=== PATIENT | male | born 1995 | race Caucasian/White ===

== ENCOUNTER 2016-11-15 11:41 | Emergency (ER) | payer MEDICAID ==
[~2016-11-15] VITALS: Ht 157.5 cm; Wt 62.1 kg
[~2016-11-15 11:41] MED LIST: CITA-36 PO; LAM100T PO
[2016-11-15 12:59] VITALS: BP 109/76
== END 2016-11-15 13:41 | disposition home or self-care (01) ==
LOC: ER 11:41
DX: S93.401A Sprain of unspecified ligament of right ankle, initial encounter (principal); F17.210 Nicotine dependence, cigarettes, uncomplicated; J45.909 Unspecified asthma, uncomplicated; F12.10 Cannabis abuse, uncomplicated; W01.0XXA Fall on same level from slipping, tripping and stumbling without subsequent striking against object, initial encounter; Y93.51 Activity, roller skating (inline) and skateboarding; Y99.8 Other external cause status; Y92.488 Other paved roadways as the place of occurrence of the external cause; Z88.0 Allergy status to penicillin; Z88.1 Allergy status to other antibiotic agents
CPT/HCPCS: 73610

== ENCOUNTER 2017-10-06 18:27 | Emergency (ER) | payer MEDICAID ==
[~2017-10-06] VITALS: Ht 157.5 cm; Wt 58.5 kg
[2017-10-06 18:43] VITALS: BP 116/67
== END 2017-10-06 20:20 | disposition home or self-care (01) ==
LOC: ER 18:27
DX: S93.402A Sprain of unspecified ligament of left ankle, initial encounter (principal); J45.909 Unspecified asthma, uncomplicated; F17.210 Nicotine dependence, cigarettes, uncomplicated; F12.10 Cannabis abuse, uncomplicated; Z88.0 Allergy status to penicillin; Z88.1 Allergy status to other antibiotic agents; Z88.8 Allergy status to other drugs, medicaments and biological substances; V00.131A Fall from skateboard, initial encounter; Y93.51 Activity, roller skating (inline) and skateboarding; Y99.8 Other external cause status; Y92.89 Other specified places as the place of occurrence of the external cause
CPT/HCPCS: 29515; 73610

== ENCOUNTER 2018-02-15 12:19 | Emergency (ER) | payer MEDICAID ==
[~2018-02-15] VITALS: Ht 157.5 cm; Wt 61.2 kg
[2018-02-15 12:24] VITALS: BP 125/71
== END 2018-02-15 13:59 | disposition home or self-care (01) ==
LOC: ER 12:19
DX: S83.91XA Sprain of unspecified site of right knee, initial encounter (principal); J45.909 Unspecified asthma, uncomplicated; F17.210 Nicotine dependence, cigarettes, uncomplicated; Z88.0 Allergy status to penicillin; Z88.1 Allergy status to other antibiotic agents; Z88.6 Allergy status to analgesic agent; X50.1XXA Overexertion from prolonged static or awkward postures, initial encounter; Y93.51 Activity, roller skating (inline) and skateboarding; Y92.89 Other specified places as the place of occurrence of the external cause; Y99.8 Other external cause status
CPT/HCPCS: 73562

== ENCOUNTER 2018-03-26 22:11 | Emergency (ER) | payer MEDICAID ==
[~2018-03-26] VITALS: Ht 157.5 cm; Wt 59.0 kg
[2018-03-26 23:13] VITALS: BP 122/87
== END 2018-03-27 03:06 | disposition left against medical advice (07) ==
LOC: ER 22:11
DX: R07.81 Pleurodynia (principal); Z53.21 Procedure and treatment not carried out due to patient leaving prior to being seen by health care provider; Y08.89XA Assault by other specified means, initial encounter; Y93.89 Activity, other specified; Y99.8 Other external cause status; Y92.89 Other specified places as the place of occurrence of the external cause
CPT/HCPCS: 70450; 71101

== ENCOUNTER 2019-02-27 12:12 | Emergency (ER) | payer MEDICAID ==
[~2019-02-27] VITALS: Ht 157.5 cm; Wt 56.7 kg
[2019-02-27 12:37] VITALS: BP 115/76
[2019-02-27 13:31] LABS: Urine Bacteria NONE SEEN /hpf (None Seen); Urine Blood Negative /uL (Negative); Urine Specific Gravity 1.016 (1.001-1.035); Urine WBC 38 /hpf (0 - 3)
[2019-02-27] MEDS ORDERED: KETOROLAC TROMETH 60MG/2ML VIAL IM ONE (14:00)
== END 2019-02-27 14:33 | disposition home or self-care (01) ==
LOC: ER 12:12
DX: S39.011A Strain of muscle, fascia and tendon of abdomen, initial encounter (principal); N39.0 Urinary tract infection, site not specified; J45.909 Unspecified asthma, uncomplicated; F17.210 Nicotine dependence, cigarettes, uncomplicated; Z88.0 Allergy status to penicillin; Z88.1 Allergy status to other antibiotic agents; X50.1XXA Overexertion from prolonged static or awkward postures, initial encounter; Y93.89 Activity, other specified; Y92.89 Other specified places as the place of occurrence of the external cause; Y99.8 Other external cause status
CPT/HCPCS: 74176; 81001; 96372; 99284; J1885

== ENCOUNTER 2019-07-25 14:51 | Emergency (ER) | payer SELFPAY ==
[~2019-07-25] VITALS: Ht 157.5 cm; Wt 61.2 kg
[2019-07-25 15:01] VITALS: BP 124/85
== END 2019-07-25 16:23 | disposition home or self-care (01) ==
LOC: ER 14:51
DX: N48.1 Balanitis (principal); J45.909 Unspecified asthma, uncomplicated; F17.210 Nicotine dependence, cigarettes, uncomplicated; Z88.1 Allergy status to other antibiotic agents; Z88.8 Allergy status to other drugs, medicaments and biological substances; Z88.0 Allergy status to penicillin; Z79.899 Other long term (current) drug therapy